=== PATIENT | male | born 1955 | race African-American/Black ===

== ENCOUNTER 2019-07-14 16:15 | Emergency (ER) | payer MEDICAID ==
[~2019-07-14] VITALS: Ht 165.1 cm; Wt 59.1 kg
[2019-07-14 16:36] VITALS: Ht 165.1 cm; Wt 59.1 kg
[2019-07-14] MEDS ORDERED: CYCLOBENZAPRINE10 MG PO (19:47)
[2019-07-14 20:40] VITALS: BP 149/100
== END 2019-07-14 21:38 | disposition home or self-care (01) ==
LOC: D.ER 16:15
DX: M47.27 Other spondylosis with radiculopathy, lumbosacral region (principal); M51.36 Other intervertebral disc degeneration, lumbar region; Q76.49 Other congenital malformations of spine, not associated with scoliosis; K21.9 Gastro-esophageal reflux disease without esophagitis; I10 Essential (primary) hypertension; Z72.0 Tobacco use; Z86.73 Personal history of transient ischemic attack (TIA), and cerebral infarction without residual deficits